=== PATIENT | female | born 1975 | race Hispanic/Latino ===

== ENCOUNTER 2018-01-04 18:54 | Emergency (ER) | payer OTHER ==
[~2018-01-04] VITALS: Ht 162.6 cm; Wt 112.5 kg
[2018-01-04] MEDS ORDERED: IBUPROFEN 400 MG TAB PO ONE (20:00)
[2018-01-04 20:42] VITALS: BP 140/75
== END 2018-01-04 20:47 | disposition home or self-care (01) ==
LOC: FSED 18:54
DX: R20.2 Paresthesia of skin (principal)
CPT/HCPCS: 70450; 80053; 81025; 85025; 85379; 99283

== ENCOUNTER 2018-07-15 19:32 | Emergency (ER) | payer OTHER ==
[~2018-07-15] VITALS: Ht 162.6 cm; Wt 115.2 kg
== END 2018-07-15 20:48 | disposition home or self-care (01) ==
LOC: FSED 19:32
DX: L23.9 Allergic contact dermatitis, unspecified cause (principal)
CPT/HCPCS: 99282

== ENCOUNTER → 2020-01-17 | Outpatient (CLI) | payer OTHER ==
--- NOTE | 2020-01-17 15:44 | Diagnostic Imaging Report ---
TECHNIQUE: Magnetic resonance imaging of the LEFT ANKLE was performed WITHOUT injected contrast. COMPARISON: None available. HISTORY: Left ankle pain FINDINGS: LIGAMENTS: Medial Complex: Intact Lateral Complex: Tibiofibular, talofibular, and calcaneofibular ligaments are intact. TENDONS: Medial: Intact Lateral: Intact Anterior: Intact Achilles: Intact BONES: Intraosseous ganglion in the anterior calcaneus. JOINTS: Cartilage: No focal defect is identified involving the tibiotalar joint. Other: Fluid within the joints is within physiologic limits. SOFT TISSUES: Plantar fascial thickening. Focus of soft tissue edema adjacent to the anterior aspect of the medial malleolus. IMPRESSION: Intact anterior tibial tendon. Soft tissue edema adjacent to the anterior medial tibial. The etiology is indeterminate but could reflect an adventitial bursitis. Signed by: Dr. Julio César Antoine M.D. on 01/17/2020 3:40 PM
== END ==
LOC: MRI 12:54
PROVIDERS: ATTEND Podiatrist Foot & Ankle Surgery
DX: M76.812 Anterior tibial syndrome, left leg (principal)

== ENCOUNTER 2022-03-17 14:25 | Emergency (ER) | payer OTHER ==
[~2022-03-17] VITALS: Ht 162.6 cm; Wt 115.2 kg
[2022-03-17] MEDS ORDERED: SODIUM CHLORIDE 0.9% 1000ML 1,000 ML IV SCH (16:15)
[2022-03-17] MEDS ORDERED: ASPIRIN 325 MG TAB PO ONE (16:15)
[2022-03-17] MEDS ORDERED: ONDANSETRON HCL INJ 2MG/ML 2ML 2 MG/ML VIAL IV STA (16:15)
[2022-03-17] MEDS ORDERED: ACETAMINOPHEN 325 MG TAB PO ONE (16:15)
[2022-03-17] MEDS ORDERED: KETOROLAC TROMETHAMINE 30 MG/ML VIAL IV STA (16:18)
[2022-03-17] MEDS ORDERED: ASPIRIN 81 MG CHEW TAB PO STA (16:23)
[2022-03-17] MEDS ORDERED: ASPIRIN 81 MG CHEW TAB ONE (16:51)
[2022-03-17] MEDS ORDERED: KETOROLAC TROMETHAMINE 30 MG/ML VIAL ONE (16:51)
[2022-03-17] MEDS ORDERED: ONDANSETRON HCL INJ 2MG/ML 2ML 2 MG/ML VIAL ONE (16:52)
[2022-03-17] MEDS ORDERED: SODIUM CHLORIDE 0.9% 1000ML 1,000 ML ONE (16:52)
[2022-03-17] MEDS ORDERED: ACETAMINOPHEN 325 MG TAB ONE (16:52)
[2022-03-17 17:45] VITALS: BP 131/61
== END 2022-03-17 17:45 | disposition home or self-care (01) ==
LOC: FSED 14:35
DX: R07.89 Other chest pain (principal); I10 Essential (primary) hypertension; R51.9 Headache, unspecified; H53.9 Unspecified visual disturbance; Z85.41 Personal history of malignant neoplasm of cervix uteri; Z85.42 Personal history of malignant neoplasm of other parts of uterus
CPT/HCPCS: 70450; 80053; 81003; 81025; 82553; 84484; 85025; 85379; 96374; 96376; 99284; J1885; J2405; J7030; 93005

== ENCOUNTER 2022-09-15 13:52 | Emergency (ER) | payer OTHER ==
[~2022-09-15] VITALS: Ht 162.6 cm; Wt 116.6 kg
[2022-09-15] MEDS ORDERED: PREDNISONE50 MG PO (14:18)
== END 2022-09-15 14:31 | disposition home or self-care (01) ==
LOC: FSED 14:06
DX: R20.3 Hyperesthesia (principal); I10 Essential (primary) hypertension; Z85.43 Personal history of malignant neoplasm of ovary; Z85.42 Personal history of malignant neoplasm of other parts of uterus; Z85.41 Personal history of malignant neoplasm of cervix uteri
CPT/HCPCS: 99282

== ENCOUNTER 2022-10-20 21:34 | Emergency (ER) | payer OTHER ==
[~2022-10-20] VITALS: Ht 162.6 cm; Wt 116.6 kg
[~2022-10-20 21:34] MED LIST: PREDNISONE50 MG PO
[2022-10-20] MEDS ORDERED: ONDANSETRON HCL INJ 2MG/ML 2ML 2 MG/ML VIAL IV STA (23:20)
[2022-10-20] MEDS ORDERED: SODIUM CHLORIDE 0.9% 1000ML 1,000 ML IV SCH (23:30)
[2022-10-20] MEDS ORDERED: SODIUM CHLORIDE 0.9% 1000ML 1,000 ML ONE (23:40)
[2022-10-20] MEDS ORDERED: ONDANSETRON HCL INJ 2MG/ML 2ML 2 MG/ML VIAL ONE (23:40)
[2022-10-21] MEDS ORDERED: ONDANSETRON ODT4 MG PO (00:39)
[2022-10-21] MEDS ORDERED: PANTOPRAZOLE SO40 MG PO (00:40)
[2022-10-21] MEDS ORDERED: IOPAMIDOL 370 MG/ML 100 ML INFUS..BTL INJ ONE (00:43)
== END 2022-10-20 23:06 | disposition home or self-care (01) ==
LOC: FSED 22:06
DX: R10.13 Epigastric pain (principal); K52.9 Noninfective gastroenteritis and colitis, unspecified; R11.2 Nausea with vomiting, unspecified; K29.70 Gastritis, unspecified, without bleeding; I10 Essential (primary) hypertension; Z85.43 Personal history of malignant neoplasm of ovary; Z85.41 Personal history of malignant neoplasm of cervix uteri
CPT/HCPCS: 74177; 83518; 87400; 99284; C9113; J2405; J7030; 99283; Q9967